=== PATIENT | female | born 1980 | race Caucasian/White ===

== ENCOUNTER 2018-06-22 09:33 | Emergency (ER) | payer OTHER ==
[~2018-06-22] VITALS: Ht 160 cm; Wt 63.5 kg
[~2018-06-22 09:33] MED LIST: ACET325 PO; ACET500 PO; ALBU90OI INH; ALPR.5 PO; AMOX500 PO; ARIP10 PO; BCP; BENZ100A PO; BUPR150T2 PO; BUSP5 PO; CLIM.025TP TOP; CLIN150 PO; CODBUTACEC PO; CRUTCH2 XX; CYCL10 PO; DIPATR PO; DOCU100 PO; DOXY100 PO; DULO30 PO; ERGO400 PO; Esgic Tablet1 EACH PO; FLUO10 PO; GABA300 PO; GABA800 PO; GLYB1.5 PO; HYDACE5 PO; HYDPAM25 PO; IBUP400 PO; IBUP800 PO; Imitrex100 MG PO; Inderal40 MG PO; LAMO25 PO; LORA2 PO; MEDICAL MARIJUANA; METO5A PO; METPRE4DP PO; MULVITMINE PO; Maxalt10 MG PO; Maxalt5 MG; NAPR500 PO; NITR100CA PO; NORETHTP TOP; OMEP20ER PO; OMEP40CA12 PO; ONDA4 PO; ONDA4ODT SL; OXTELLAR XR300 MG PO; OXYACE10; OXYACE10 PO; OXYACE5T PO; OXYACE7.5T PO; OXYC10TA19; OXYC10TA19 PO; OXYC5; PERM5TC TOP; PRED20 PO; PRENZ PO; PROM25 PO; Pepcid40 MG PO; Prempro 0.3 MG/1 TAB PO; RANI150 PO; RXOXYACE PO; RXPROM25 PO; RXTRAM50 PO; SERT100 PO; SILSUL1TC TOP; TOPI25 PO; TOPI50 PO; TRAACE PO; TRAM50 PO; TRAZ100 MT; TRAZ100 PO; Tylenol325 MG PO; Zithromax250 MG PO; Zofran Odt4 MG SL; [UNRECOGNIZED DRUG - OTHER] PO; work note
[2018-06-22] MEDS ORDERED: OXCA150 PO (10:07)
[2018-06-22] MEDS ORDERED: Imitrex100 MG PO (10:10)
== END 2018-06-22 10:33 | disposition home or self-care (01) ==
LOC: ER 09:33
DX: M25.522 Pain in left elbow (principal); Z88.0 Allergy status to penicillin; Z91.030 Bee allergy status; Z88.6 Allergy status to analgesic agent; Z88.1 Allergy status to other antibiotic agents; Z88.5 Allergy status to narcotic agent; Z79.899 Other long term (current) drug therapy; G43.909 Migraine, unspecified, not intractable, without status migrainosus; F17.210 Nicotine dependence, cigarettes, uncomplicated
CPT/HCPCS: 73080; 99283-25

== ENCOUNTER 2019-03-18 17:34 | Emergency (ER) | payer OTHER ==
[~2019-03-18] VITALS: Ht 160 cm; Wt 63.5 kg
[~2019-03-18 17:34] MED LIST changes: +OXCA150 PO
[2019-03-18] MEDS ORDERED: AIMOVIG AU70 MG/1 ML (20:11)
[2019-03-18] MEDS ORDERED: PROZAC40 MG PO (20:12)
== END 2019-03-18 20:34 | disposition home or self-care (01) ==
LOC: ER 17:34
DX: S39.012A Strain of muscle, fascia and tendon of lower back, initial encounter (principal); E11.9 Type 2 diabetes mellitus without complications; G43.909 Migraine, unspecified, not intractable, without status migrainosus; F17.210 Nicotine dependence, cigarettes, uncomplicated; Z88.1 Allergy status to other antibiotic agents; Z88.5 Allergy status to narcotic agent; Z88.8 Allergy status to other drugs, medicaments and biological substances; Z79.899 Other long term (current) drug therapy; Z91.030 Bee allergy status; V49.9XXA Car occupant (driver) (passenger) injured in unspecified traffic accident, initial encounter
CPT/HCPCS: 96372; 99283-25; J1885

== ENCOUNTER 2019-03-23 11:56 | Emergency (ER) | payer OTHER ==
[~2019-03-23] VITALS: Ht 160 cm; Wt 63.5 kg
[~2019-03-23 11:56] MED LIST changes: +AIMOVIG AU70 MG/1 ML; +PROZAC40 MG PO
[2019-03-23] MEDS ORDERED: Robaxin-750750 MG PO (14:40)
[2019-03-23] MEDS ORDERED: NAPR550 PO (14:40)
== END 2019-03-23 15:42 | disposition home or self-care (01) ==
LOC: ER 11:56
DX: S29.012A Strain of muscle and tendon of back wall of thorax, initial encounter (principal); F17.210 Nicotine dependence, cigarettes, uncomplicated; Z91.038 Other insect allergy status; Z88.0 Allergy status to penicillin; Z88.6 Allergy status to analgesic agent; Z88.8 Allergy status to other drugs, medicaments and biological substances; Z88.1 Allergy status to other antibiotic agents; Z88.5 Allergy status to narcotic agent; Z79.899 Other long term (current) drug therapy; V49.9XXA Car occupant (driver) (passenger) injured in unspecified traffic accident, initial encounter; Y92.481 Parking lot as the place of occurrence of the external cause
CPT/HCPCS: 72070; 96372; 99283-25; J1885

== ENCOUNTER → 2022-09-04 | Outpatient (CLI) | payer OTHER ==
[~2022-09-04] MED LIST changes: +NAPR550 PO; +Robaxin-750750 MG PO
[2022-09-04 13:43] LABS: BASOPHILS ABSOLUTE AUTO 0.09 K/mm3 (0.00-0.23); BASOPHILS PERCENT AUTO 1 % (0-2); EOSINOPHILS ABSOLUTE AUTO 0.11 K/mm3 (0.00-0.68); EOSINOPHILS PERCENT AUTO 1 % (0-6); Hematocrit 50.2 % (33.0-51.0); Hemoglobin 16.4 g/dL (11.5-16.0); IMMATURE GRAN ABSOLUTE AUTO 0.01 K/mm3 (0.00-0.10); IMMATURE GRAN PERCENT AUTO 0 % (0-1); LYMPHOCYTES PERCENT AUTO 35 % (21-46); MONOCYTES ABSOLUTE AUTO 0.43 K/mm3 (0.16-1.47); MONOCYTES PERCENT AUTO 5 % (4-13); Mean Corpuscular HGB 31.3 pg (26.0-34.0); Mean Corpuscular HGB Conc 32.7 g/dL (31.5-36.5); Mean Corpuscular Volume 96 fL (80-100); Mean Platelet Volume 9.1 fL (9.1-12.4); NEUTROPHILS ABSOLUTE AUTO 4.52 K/mm3 (1.96-9.15); NEUTROPHILS PERCENT AUTO 57 % (41-73); Platelet Count 332 K/mm3 (150-400); RDW Coefficient Variation 13.2 % (11.7-14.2); RDW Standard Deviation 46.9 fL (35.1-46.3); Red Blood Cell Count 5.24 M/mm3 (3.80-5.20); White Blood Cell Count 7.96 K/mm3 (4.00-11.30)
[2022-09-04 14:14] LABS: Albumin, Blood 3.9 g/dL (3.4-5.0); Albumin/Globulin Ratio 1.1 (0.8-1.8); Bilirubin, Total 0.2 mg/dL (0.1-1.0); Bun/Creatinine Ratio 16.8 (12.0-20.0); Calcium, Blood 9.5 mg/dL (8.5-10.1); Creatinine, Blood 0.71 mg/dL (0.40-1.00); Globulin, Blood 3.5 g/dL (2.2-4.0); Magnesium, Blood 2.3 mg/dL (1.6-2.4); Total Protein, Blood 7.4 g/dL (6.4-8.2)
== END | disposition home or self-care (01) ==
LOC: LAB SHORT 11:24 → LAB 11:24
PROVIDERS: Family Medicine
DX: M79.661 Pain in right lower leg (principal); M79.662 Pain in left lower leg
CPT/HCPCS: 80053; 83735; 85025

== ENCOUNTER → 2023-09-29 | Outpatient (CLI) | payer OTHER ==
[2023-10-03 14:25] LABS: HPV HIGH RISK BY TMA Not Detected; HPV SOURCE Cervical
== END | disposition home or self-care (01) ==
LOC: LAB SHORT 11:37 → LAB 11:37
PROVIDERS: Advanced Practice Midwife
DX: Z01.419 Encounter for gynecological examination (general) (routine) without abnormal findings (principal)
CPT/HCPCS: 87624; G0123